=== PATIENT | male | born 1980 | race Caucasian/White ===

== ENCOUNTER 2021-06-12 00:14 | Emergency (ER) | payer OTHER ==
[2021-06-12] MEDS ORDERED: diphenhydrAMINE 50 MG/ML VIAL ONE (00:50)
[2021-06-12] MEDS ORDERED: Morphine 4 MG/ML VIAL ONE (00:50)
[2021-06-12] MEDS ORDERED: Ondansetron PF 4 MG/2 ML Vial ONE (00:50)
[2021-06-12 01:07] LABS: #Basophils 0.1 thou/uL (0.0-0.2); #Eosinphils 0.3 thou/uL (0.0-0.7); #Monocytes 0.5 thou/uL (0.11-0.59); #Neutrophils 2.4 thou/uL (1.40-6.50); %Basophils 1.4 % (0.0-1.0); %Eosinophils 4.9 % (0.0-10.0); %Monocytes 9.6 % (0.0-10.0); %Neutrophils 46.1 % (42.0-75.0); Hemoglobin 14.3 g/dL (14.0-18.0); Mean Corpuscular HGB CONC 33.9 g/dL (32.0-36.0); Mean Corpuscular Hemoglobin 27.9 pg (27.0-31.0); Mean Corpuscular Volume 82.4 fL (78.0-98.0); Mean Platelet Volume 9.2 fL (7.4-10.4); Platelet Count 196 thou/uL (130-400); RBC Distribution Width 16.4 % (11.5-14.5); Red Blood Cell (RBC) Count 5.11 mill/uL (4.70-6.10); White Blood Cell (WBC) Count 5.2 thou/uL (4.8-10.8)
[2021-06-12] MEDS ORDERED: HYDROmorphone 0.5 MG/0.5 ML SYRINGE ONE ×2 (01:23→02:02)
[2021-06-12 01:29] LABS: ALT (SGPT) 52 U/L (8-55); AST (SGOT) 31 U/L (5-34); Albumin 4.1 g/dL (3.5-5.0); Alkaline Phosphatase 84 U/L (40-110); Anion Gap 17 mmol/L (10-20); BUN (Urea Nitrogen) 9 mg/dL (8.9-20.6); Bilirubin, Total 0.3 mg/dL (0.2-1.2); Calc. Creatinine Clearance 0 mL/min (70-130); Calcium 9.6 mg/dL (7.8-10.44); Carbon Dioxide 19 mmol/L (22-29); Chloride 105 mmol/L (98-107); Globulin 3.3 g/dL (2.4-3.5); Glucose 102 mg/dL (70-105); Lipase 85 U/L (8-78); Potassium 3.9 mmol/L (3.5-5.1); Protein, Total 7.4 g/dL (6.0-8.3); Sodium 137 mmol/L (136-145)
[2021-06-12 01:32] LABS: Bilirubin Negative (Negative); Blood, Urine Negative (Negative); Glucose, Urine (Dipstick) Negative (Negative); Ketone, Urine Negative (Negative); Leukocyte Negative (Negative); Nitrite Negative (Negative); Protein, Urine (Dipstick) Negative (Neg-Trace); Specific Gravity, Urine 1.015 (1.005-1.030); Urobilinogen 0.2 mg/dL (Less than 2)
[2021-06-12 01:33] LABS: Clarity Clear (Clear)
[2021-06-12] MEDS ORDERED: Iopamidol 370 76% 50 ML VIAL FS ONE (10:47)
== END 2021-06-12 03:17 | disposition home or self-care (01) ==
LOC: ERS 00:14
DX: K86.1 Other chronic pancreatitis (principal); F17.220 Nicotine dependence, chewing tobacco, uncomplicated
CPT/HCPCS: 36415; 74177; 80053; 81003; 83605; 83690; 85025; 96374; 96375; 96376; J1170; J1200; J2270; J2405; Q9967

== ENCOUNTER 2021-07-02 01:20 | Emergency (ER) | payer OTHER ==
[2021-07-02] MEDS ORDERED: Morphine 4 MG/ML VIAL ONE ×3 (01:57→03:46)
[2021-07-02] MEDS ORDERED: diphenhydrAMINE 12.5 MG/5 ML UDCUP ONE (01:58)
[2021-07-02] MEDS ORDERED: Pantoprazole 40 MG VIAL ONE (01:58)
[2021-07-02] MEDS ORDERED: Ondansetron PF 4 MG/2 ML Vial ONE (01:58)
[2021-07-02] MEDS ORDERED: diphenhydrAMINE 50 MG/ML VIAL ONE (01:59)
[2021-07-02 02:11] LABS: #Basophils 0.1 thou/uL (0.0-0.2); #Eosinphils 0.1 thou/uL (0.0-0.7); #Lymphocytes 2.7 thou/uL (1.20-3.40); #Monocytes 0.8 thou/uL (0.11-0.59); #Neutrophils 3.1 thou/uL (1.40-6.50); %Basophils 0.9 % (0.0-1.0); %Eosinophils 1.9 % (0.0-10.0); %Lymphocytes 39.8 % (21.0-51.0); %Monocytes 11.3 % (0.0-10.0); %Neutrophils 46.2 % (42.0-75.0); Hemoglobin 14.5 g/dL (14.0-18.0); Mean Corpuscular HGB CONC 34.9 g/dL (32.0-36.0); Mean Corpuscular Hemoglobin 29.6 pg (27.0-31.0); Mean Corpuscular Volume 84.8 fL (78.0-98.0); Platelet Count 197 thou/uL (130-400); RBC Distribution Width 15.6 % (11.5-14.5); Red Blood Cell (RBC) Count 4.91 mill/uL (4.70-6.10); White Blood Cell (WBC) Count 6.8 thou/uL (4.8-10.8)
[2021-07-02 02:38] LABS: ALT (SGPT) 43 U/L (8-55); AST (SGOT) 37 U/L (5-34); Albumin 4.3 g/dL (3.5-5.0); Alcohol Less than 10 mg/dL (Less than 10); Alkaline Phosphatase 80 U/L (40-110); Anion Gap 13 mmol/L (10-20); BUN (Urea Nitrogen) 15 mg/dL (8.9-20.6); Bilirubin, Total 0.3 mg/dL (0.2-1.2); Calc. Creatinine Clearance 0 mL/min (70-130); Carbon Dioxide 24 mmol/L (22-29); Chloride 106 mmol/L (98-107); Glucose 80 mg/dL (70-105); Potassium 4.2 mmol/L (3.5-5.1); Protein, Total 7.3 g/dL (6.0-8.3); Sodium 139 mmol/L (136-145)
[2021-07-02] MEDS ORDERED: Iopamidol 370 76% 100 ML VIAL ONE (10:36)
== END 2021-07-02 05:20 | disposition left against medical advice (07) ==
LOC: ERS 01:20
DX: K92.0 Hematemesis (principal); F17.220 Nicotine dependence, chewing tobacco, uncomplicated
CPT/HCPCS: 36415; 71045; 71275; 74160; 80053; 80307; 83690; 85025; 86850; 86900; 86901; 96374; 96375; 96376; C9113; J1200; J2270; J2405; Q0163; Q9967

== ENCOUNTER 2022-04-02 23:05 | Inpatient (IN) | payer OTHER ==
[2022-04-02] MEDS ORDERED: HYDROmorphone 0.5 MG/0.5 ML SYRINGE ONE (23:54)
[2022-04-02] MEDS ORDERED: diphenhydrAMINE 50 MG/ML VIAL ONE (23:55)
[2022-04-02] MEDS ORDERED: Ondansetron PF 4 MG/2 ML Vial ONE (23:55)
[2022-04-03] LABS: #Basophils 0.1 thou/uL (0.0-0.2); #Monocytes 0.7 thou/uL (0.11-0.59); #Neutrophils 4.2 thou/uL (1.40-6.50); %Basophils 1.2 % (0.0-1.0); %Eosinophils 0.5 % (0.0-10.0); %Lymphocytes 37.7 % (21.0-51.0); %Monocytes 8.6 % (0.0-10.0); Hemoglobin 14.9 g/dL (14.0-18.0); Mean Corpuscular HGB CONC 33.4 g/dL (32.0-36.0); Mean Corpuscular Hemoglobin 28.2 pg (27.0-31.0); Mean Corpuscular Volume 84.2 fl (78.0-98.0); Mean Platelet Volume 8.3 fL (7.4-10.4); Platelet Count 231 10x3/uL (130-400); RBC Distribution Width 13.6 % (11.5-14.5); Red Blood Cell (RBC) Count 5.31 mill/uL (4.70-6.10)
[2022-04-03 00:35] LABS: ALT (SGPT) 32 U/L (8-55); AST (SGOT) 25 U/L (5-34); Albumin 4.4 g/dL (3.5-5.0); Alkaline Phosphatase 101 U/L (40-110); Anion Gap 17 mmol/L (10-20); BUN (Urea Nitrogen) 13 mg/dL (8.9-20.6); Bilirubin, Total 0.5 mg/dL (0.2-1.2); Calc. Creatinine Clearance 0 mL/min (70-130); Calcium 9.7 mg/dL (7.8-10.44); Carbon Dioxide 19 mmol/L (22-29); Chloride 104 mmol/L (98-107); Estimated GFR 78; Globulin 3.3 g/dL (2.4-3.5); Glucose 106 mg/dL (70-105); Lipase 101 U/L (8-78); Potassium 3.8 mmol/L (3.5-5.1); Protein, Total 7.7 g/dL (6.0-8.3); Sodium 136 mmol/L (136-145)
[2022-04-03] MEDS ORDERED: HYDROmorphone 0.5 MG/0.5 ML SYRINGE ONE ×2 (02:00→02:01)
[2022-04-03 04:50] VITALS: BMI 24.3
[2022-04-03] MEDS ORDERED: Sodium Chloride 0.9% 1,000 ML IV SCH (05:00)
[2022-04-03] MEDS ORDERED: Naloxone HCl 0.4 mg/ml Vial IV PRN ×2 (05:16→22:31)
[2022-04-03] MEDS ORDERED: Zolpidem Tartrate 5 MG TAB PO PRN ×2 (05:16→22:31)
[2022-04-03] MEDS ORDERED: diphenhydrAMINE 50 MG/ML VIAL IM PRN ×2 (05:16→22:31)
[2022-04-03] MEDS ORDERED: diphenhydrAMINE 25 MG CAP PO PRN ×2 (05:16→22:31)
[2022-04-03] MEDS ORDERED: HYDROmorphone 10 mg/100 ml CADD IVPB PRN (05:16)
[2022-04-03] MEDS ORDERED: Ondansetron PF 4 MG/2 ML Vial IVP PRN (05:16)
[2022-04-03] MEDS ORDERED: Communication Order-Pharmacy FS SCH ×2 (05:30→22:45)
[2022-04-03] MEDS: diphenhydrAMINE 50 MG/ML VIAL IVP PRN ×4 (05:51→21:24)
[2022-04-03] MEDS ORDERED: hydrOXYzine 25 MG TAB PO PRN (08:48)
[2022-04-03] MEDS ORDERED: traZODone HCl 50 MG TAB PO PRN (08:48)
[2022-04-03] MEDS: Sodium Chloride 0.9% 1,000 ML IV SCH ×4 (09:22→20:17)
[2022-04-03] MEDS ORDERED: Ondansetron PF 4 MG/2 ML Vial IVP SCH (09:30)
[2022-04-03] MEDS: Pancrelipase DR 12,000 1 CAP PO SCH ×2 (12:47→17:29)
[2022-04-03] MEDS: Ondansetron PF 4 MG/2 ML Vial IVP PRN (16:39)
[2022-04-03] MEDS: Mirtazapine 15 MG TAB PO SCH ×2 (20:17→21:24)
[2022-04-03] MEDS ORDERED: Bisacodyl 5 MG TAB PO PRN (22:02)
[2022-04-03] MEDS ORDERED: FENTANYL 500 MCG/10 ML VIAL 2,000 MCG in Sodium Chloride 0.9% 60 ML IV PRN (22:31)
[2022-04-04] MEDS: Senokot S 8.6-50 MG TAB PO PRN ×2 (00:54→17:49)
[2022-04-04] MEDS: Sodium Chloride 0.9% 1,000 ML IV SCH ×6 (02:00→19:41)
[2022-04-04] MEDS: diphenhydrAMINE 50 MG/ML VIAL IVP PRN ×3 (05:27→19:41)
[2022-04-04] MEDS: Ondansetron PF 4 MG/2 ML Vial IVP PRN ×3 (05:27→19:40)
[2022-04-04] MEDS: Pancrelipase DR 12,000 1 CAP PO SCH ×3 (08:03→17:45)
[2022-04-04 09:02] LABS: #Basophils 0.1 thou/uL (0.0-0.2); #Eosinphils 0.1 thou/uL (0.0-0.7); #Lymphocytes 2.5 thou/uL (1.20-3.40); #Monocytes 0.5 thou/uL (0.11-0.59); #Neutrophils 2.3 thou/uL (1.40-6.50); %Basophils 1.2 % (0.0-1.0); %Eosinophils 1.8 % (0.0-10.0); %Lymphocytes 45.6 % (21.0-51.0); %Monocytes 9.1 % (0.0-10.0); %Neutrophils 42.3 % (42.0-75.0); Hemoglobin 13.2 g/dL (14.0-18.0); Mean Corpuscular Hemoglobin 28.4 pg (27.0-31.0); Mean Corpuscular Volume 91.7 fl (78.0-98.0); Mean Platelet Volume 9.2 fL (7.4-10.4); Platelet Count 147 10x3/uL (130-400); RBC Distribution Width 13.9 % (11.5-14.5); Red Blood Cell (RBC) Count 4.65 mill/uL (4.70-6.10); White Blood Cell (WBC) Count 5.5 10x3/uL (4.8-10.8)
[2022-04-04 09:23] LABS: Anion Gap 14 mmol/L (10-20); BUN (Urea Nitrogen) 6 mg/dL (8.9-20.6); Calc. Creatinine Clearance 115 mL/min (70-130); Calcium 8.4 mg/dL (7.8-10.44); Carbon Dioxide 17 mmol/L (22-29); Chloride 109 mmol/L (98-107); Estimated GFR 96; Glucose 95 mg/dL (70-105); Potassium 4.2 mmol/L (3.5-5.1); Sodium 136 mmol/L (136-145)
[2022-04-04] MEDS: HYDROmorphone/PF 10 MG in Sodium Chloride 0.9% 99 ML IVPB PRN (12:30)
[2022-04-04] MEDS: Mirtazapine 15 MG TAB PO SCH (21:54)
[2022-04-04] MEDS: Polyethylene Glycol 3350 17 GM Packet PO SCH (21:55)
[2022-04-05] MEDS: Sodium Chloride 0.9% 1,000 ML IV SCH ×4 (01:10→22:25)
[2022-04-05] MEDS: diphenhydrAMINE 50 MG/ML VIAL IVP PRN ×4 (01:13→22:25)
[2022-04-05] MEDS: Ondansetron PF 4 MG/2 ML Vial IVP PRN ×4 (01:13→22:26)
[2022-04-05] MEDS: HYDROmorphone/PF 10 MG in Sodium Chloride 0.9% 99 ML IVPB PRN ×2 (01:22→17:18)
[2022-04-05] MEDS ORDERED: Pantoprazole 40 MG VIAL IVP SCH (09:00)
[2022-04-05] MEDS: Pancrelipase DR 12,000 1 CAP PO SCH ×3 (09:48→16:56)
[2022-04-05] MEDS: Polyethylene Glycol 3350 17 GM Packet PO SCH ×2 (09:56→21:05)
[2022-04-05] MEDS: Mirtazapine 15 MG TAB PO SCH (21:04)
[2022-04-05 21:59] VITALS: BP 111/74; TEMP 97.6
[2022-04-06] MEDS: diphenhydrAMINE 50 MG/ML VIAL IVP PRN (05:23)
[2022-04-06] MEDS: Sodium Chloride 0.9% 1,000 ML IV SCH (05:27)
[2022-04-06] MEDS: Ondansetron PF 4 MG/2 ML Vial IVP PRN (05:27)
[2022-04-06] MEDS: Polyethylene Glycol 3350 17 GM Packet PO SCH (05:31)
[2022-04-06] MEDS ORDERED: FLU VACC QS2022-23(6MOS UP)/PF 60 MCG/0.5 ML SYRINGE IM ONE (09:00)
[2022-04-06] MEDS ORDERED: Pantoprazole 40 MG VIAL IVP SCH (09:00)
== END 2022-04-06 07:16 | disposition left against medical advice (07) | DRG 440 ==
LOC: ERS 23:05 → T4-B 04-03 03:50 → OBSVTOIN 04-03 11:32
PROVIDERS: ADMIT Internal Medicine; ATTEND Internal Medicine
DX: K85.90 Acute pancreatitis without necrosis or infection, unspecified (principal); K86.1 Other chronic pancreatitis; Z20.822 Contact with and (suspected) exposure to COVID-19; F43.10 Post-traumatic stress disorder, unspecified; F41.0 Panic disorder [episodic paroxysmal anxiety]; G47.00 Insomnia, unspecified; G43.909 Migraine, unspecified, not intractable, without status migrainosus; Z88.6 Allergy status to analgesic agent; Z88.8 Allergy status to other drugs, medicaments and biological substances; Z85.01 Personal history of malignant neoplasm of esophagus; Z92.21 Personal history of antineoplastic chemotherapy; Z92.3 Personal history of irradiation; Z98.890 Other specified postprocedural states; Z90.49 Acquired absence of other specified parts of digestive tract
CPT/HCPCS: 36415; 80048; 80053; 83690; 85025; 96375; 96376; G0378; J1170; J1200; J2405; J3010; J3490; J7050; U0003; U0005

== ENCOUNTER 2022-04-10 00:18 | Inpatient (IN) | payer OTHER ==
[2022-04-10] MEDS ORDERED: diphenhydrAMINE 50 MG/ML VIAL ONE ×2 (00:40→03:13)
[2022-04-10] MEDS ORDERED: diphenhydrAMINE 50 MG CAP ONE (00:40)
[2022-04-10] MEDS ORDERED: Ondansetron PF 4 MG/2 ML Vial ONE ×2 (00:40→03:13)
[2022-04-10] MEDS ORDERED: HYDROmorphone 0.5 MG/0.5 ML SYRINGE ONE ×3 (00:59→03:13)
[2022-04-10 01:02] LABS: #Eosinphils 0.1 thou/uL (0.0-0.7); #Lymphocytes 2.5 thou/uL (1.20-3.40); #Monocytes 0.7 thou/uL (0.11-0.59); #Neutrophils 5.1 thou/uL (1.40-6.50); %Basophils 0.2 % (0.0-1.0); %Eosinophils 0.6 % (0.0-10.0); %Lymphocytes 29.9 % (21.0-51.0); %Monocytes 8.1 % (0.0-10.0); %Neutrophils 61.1 % (42.0-75.0); Hemoglobin 14.6 g/dL (14.0-18.0); Mean Corpuscular HGB CONC 33.4 g/dL (32.0-36.0); Mean Corpuscular Volume 83.9 fl (78.0-98.0); Platelet Count 164 10x3/uL (130-400); RBC Distribution Width 13.8 % (11.5-14.5); White Blood Cell (WBC) Count 8.3 10x3/uL (4.8-10.8)
[2022-04-10 01:23] LABS: ALT (SGPT) 34 U/L (8-55); AST (SGOT) 27 U/L (5-34); Albumin 4.3 g/dL (3.5-5.0); Alkaline Phosphatase 100 U/L (40-110); Anion Gap 17 mmol/L (10-20); BUN (Urea Nitrogen) 12 mg/dL (8.9-20.6); Bilirubin, Total 0.3 mg/dL (0.2-1.2); Calc. Creatinine Clearance 0 mL/min (70-130); Calcium 9.5 mg/dL (7.8-10.44); Carbon Dioxide 17 mmol/L (22-29); Chloride 104 mmol/L (98-107); Estimated GFR 81; Globulin 3.3 g/dL (2.4-3.5); Glucose 102 mg/dL (70-105); Lipase 177 U/L (8-78); Protein, Total 7.6 g/dL (6.0-8.3); Sodium 134 mmol/L (136-145)
[2022-04-10 04:00] LABS: Lactic Acid 1.5 mmol/L (0.5-2.2)
[2022-04-10] MEDS ORDERED: diphenhydrAMINE 50 MG/ML VIAL IVP PRN (05:54)
[2022-04-10] MEDS ORDERED: Ondansetron ODT 4 MG TAB SL PRN (06:00)
[2022-04-10] MEDS ORDERED: Sodium Chloride 0.9% 1,000 ML IV SCH (06:00)
[2022-04-10] MEDS ORDERED: Ondansetron PF 4 MG/2 ML Vial IVP PRN (06:00)
[2022-04-10] MEDS ORDERED: Morphine 4 MG/ML VIAL SLOW IVP PRN ×3 (06:15→09:24)
[2022-04-10] MEDS ORDERED: Morphine 4 MG/ML VIAL SLOW IVP SCH (06:15)
[2022-04-10 06:16] VITALS: BMI 24.4
[2022-04-10] MEDS ORDERED: Acetaminophen 650 MG Suppository PR PRN (06:30)
[2022-04-10] MEDS ORDERED: Acetaminophen 325 MG TAB PO PRN (06:30)
[2022-04-10] MEDS ORDERED: HYDROmorphone 0.5 MG/0.5 ML SYRINGE SLOW IVP SCH ×2 (06:30→13:45)
[2022-04-10] MEDS: Sodium Chloride 0.9% 1,000 ML IV SCH ×2 (06:51→10:45)
[2022-04-10 08:14] VITALS: BP 113/67; TEMP 98
[2022-04-10] MEDS ORDERED: Enoxaparin Sodium 40 MG/0.4 ML SYRINGE SC SCH (09:00)
[2022-04-10] MEDS ORDERED: Doxycycline 100 MG in Sodium Chloride 0.9% 100 ML IVPB SCH (09:00)
[2022-04-10] MEDS ORDERED: FENTANYL 50 MCG/ML 1 ML VIAL SLOW IVP PRN ×2 (09:26→12:31)
[2022-04-10 12:06] LABS: SARS-CoV-2 NAA Rapid Test Not Detected (NotDetected)
== END 2022-04-10 15:15 | disposition left against medical advice (07) | DRG 439 ==
LOC: ERS 00:18 → T4-B 03:56
PROVIDERS: ADMIT Student in an Organized Health Care Education/Training Program; ATTEND Nurse Practitioner Family
DX: K86.1 Other chronic pancreatitis (principal); E87.1 Hypo-osmolality and hyponatremia; L03.116 Cellulitis of left lower limb; E87.20 Acidosis, unspecified; F43.10 Post-traumatic stress disorder, unspecified; Z88.6 Allergy status to analgesic agent; Z88.8 Allergy status to other drugs, medicaments and biological substances; Z79.899 Other long term (current) drug therapy; Z87.820 Personal history of traumatic brain injury; Z53.29 Procedure and treatment not carried out because of patient's decision for other reasons
CPT/HCPCS: 36415; 80053; 83605; 83690; 85025; 96374; 96375; 96376; J1170; J1200; J2405; J3010; J3490; J7050; U0002

== ENCOUNTER 2022-04-26 08:52 | Emergency (ER) | payer OTHER ==
[2022-04-26] MEDS ORDERED: diphenhydrAMINE 50 MG/ML VIAL ONE (10:03)
[2022-04-26] MEDS ORDERED: HYDROmorphone 0.5 MG/0.5 ML SYRINGE ONE (10:03)
[2022-04-26] MEDS ORDERED: Ondansetron PF 4 MG/2 ML Vial ONE (10:03)
[2022-04-26 10:13] LABS: #Eosinphils 0.1 thou/uL (0.0-0.7); #Lymphocytes 1.7 thou/uL (1.20-3.40); #Monocytes 0.5 thou/uL (0.11-0.59); #Neutrophils 3.8 thou/uL (1.40-6.50); %Basophils 0.1 % (0.0-1.0); %Eosinophils 0.9 % (0.0-10.0); %Lymphocytes 27.4 % (21.0-51.0); %Monocytes 8.3 % (0.0-10.0); %Neutrophils 63.3 % (42.0-75.0); Hemoglobin 14.1 g/dL (14.0-18.0); Mean Corpuscular HGB CONC 33.8 g/dL (32.0-36.0); Mean Corpuscular Hemoglobin 28.1 pg (27.0-31.0); Mean Platelet Volume 8.9 fL (7.4-10.4); Platelet Count 240 10x3/uL (130-400); RBC Distribution Width 13.9 % (11.5-14.5); Red Blood Cell (RBC) Count 5.03 mill/uL (4.70-6.10); White Blood Cell (WBC) Count 6.1 10x3/uL (4.8-10.8)
[2022-04-26 10:17] LABS: ALT (SGPT) 30 U/L (8-55); AST (SGOT) 28 U/L (5-34); Albumin 4.2 g/dL (3.5-5.0); Alkaline Phosphatase 94 U/L (40-110); Anion Gap 15 mmol/L (10-20); BUN (Urea Nitrogen) 10 mg/dL (8.9-20.6); Bilirubin, Total 0.4 mg/dL (0.2-1.2); Calc. Creatinine Clearance 0 mL/min (70-130); Calcium 9.6 mg/dL (7.8-10.44); Carbon Dioxide 20 mmol/L (22-29); Chloride 108 mmol/L (98-107); Estimated GFR 88; Globulin 3.2 g/dL (2.4-3.5); Glucose 86 mg/dL (70-105); Lipase 107 U/L (8-78); Potassium 4.1 mmol/L (3.5-5.1); Protein, Total 7.4 g/dL (6.0-8.3); Sodium 139 mmol/L (136-145)
[2022-04-26 10:51] LABS: Bacteria/HPF None Seen HPF (None Seen); Bilirubin Negative (Negative); Blood, Urine Negative (Negative); Clarity Clear (Clear); Glucose, Urine (Dipstick) Normal (Negative); Ketone, Urine Negative (Negative); Leukocyte Negative Leu/uL (Negative); Nitrite Negative (Negative); Protein, Urine (Dipstick) Negative (Neg-Trace); RBC/HPF 0-3 HPF (0-3); Specific Gravity, Urine 1.014 (1.002-1.036); Squamous Epithelial 0-3 HPF (0-3); Urobilinogen Normal mg/dL (Less than 2); WBC/HPF 0-3 HPF (0-3); pH, Urine 6.5 (5.0-9.0)
== END 2022-04-26 12:26 | disposition home or self-care (01) ==
LOC: ERS 08:52
DX: R10.816 Epigastric abdominal tenderness (principal); F17.220 Nicotine dependence, chewing tobacco, uncomplicated
CPT/HCPCS: 36415; 80053; 81001; 83605; 83690; 85025; 96374; 96375; J1170; J1200; J2405

== ENCOUNTER 2022-05-13 00:36 | Emergency (ER) | payer OTHER ==
[2022-05-13] MEDS ORDERED: Ondansetron PF 4 MG/2 ML Vial ONE (01:10)
[2022-05-13] MEDS ORDERED: Lidocaine Viscous Sol 2% 15 ml UD Cup ONE (01:11)
[2022-05-13] MEDS ORDERED: Mag-Al 1200 mg/1200 mg/30 ML UDCUP ONE (01:11)
[2022-05-13 01:14] LABS: #Basophils 0.1 thou/uL (0.0-0.2); #Eosinphils 0.1 thou/uL (0.0-0.7); #Lymphocytes 2.5 thou/uL (1.20-3.40); #Monocytes 0.8 thou/uL (0.11-0.59); #Neutrophils 2.8 thou/uL (1.40-6.50); %Basophils 1.3 % (0.0-1.0); %Eosinophils 2.3 % (0.0-10.0); %Lymphocytes 39.3 % (21.0-51.0); %Monocytes 12.4 % (0.0-10.0); %Neutrophils 44.7 % (42.0-75.0); Hemoglobin 14.8 g/dL (14.0-18.0); Mean Corpuscular HGB CONC 36.7 g/dL (32.0-36.0); Mean Corpuscular Hemoglobin 30.4 pg (27.0-31.0); Mean Platelet Volume 9.6 fL (7.4-10.4); Platelet Count 135 10x3/uL (130-400); RBC Distribution Width 14.4 % (11.5-14.5); Red Blood Cell (RBC) Count 4.87 mill/uL (4.70-6.10); White Blood Cell (WBC) Count 6.3 10x3/uL (4.8-10.8)
[2022-05-13] MEDS ORDERED: diphenhydrAMINE 50 MG/ML VIAL ONE (01:23)
[2022-05-13 01:35] LABS: ALT (SGPT) 27 U/L (8-55); AST (SGOT) 48 U/L (5-34); Albumin 4.4 g/dL (3.5-5.0); Alkaline Phosphatase 84 U/L (40-110); Anion Gap 19 mmol/L (10-20); BUN (Urea Nitrogen) 10 mg/dL (8.9-20.6); Bilirubin, Total 0.3 mg/dL (0.2-1.2); Calc. Creatinine Clearance 0 mL/min (70-130); Calcium 9.9 mg/dL (7.8-10.44); Carbon Dioxide 16 mmol/L (22-29); Chloride 108 mmol/L (98-107); Estimated GFR 63; Globulin 3.7 g/dL (2.4-3.5); Glucose 92 mg/dL (70-105); Lipase 100 U/L (8-78); Potassium 4.9 mmol/L (3.5-5.1); Protein, Total 8.1 g/dL (6.0-8.3); Sodium 138 mmol/L (136-145)
[2022-05-13] MEDS ORDERED: Fentanyl 100 MCG/2 ML VIAL ONE (02:18)
== END 2022-05-13 04:18 | disposition left against medical advice (07) ==
LOC: ERS 00:36
DX: K85.90 Acute pancreatitis without necrosis or infection, unspecified (principal); F17.220 Nicotine dependence, chewing tobacco, uncomplicated
CPT/HCPCS: 80053; 83690; 85025; 96361; 96374; 96375; J1200; J2405; J3010